=== PATIENT | female | born 1990 | race Caucasian/White ===

== ENCOUNTER 2016-04-18 17:59 | Emergency (ER) | payer BC, OTHER ==
[~2016-04-18] VITALS: Ht 165.1 cm; Wt 83.2 kg
[~2016-04-18 17:59] MED LIST: BCPILLS PO
[2016-04-18 18:06] VITALS: TEMP 37; Ht 165.1 cm; Wt 83.2 kg
[2016-04-18] MEDS ORDERED: IBUP-103 PO (18:17)
--- NOTE | 2016-04-18 18:25 | EMERGENCY ROOM VISIT NOTE ---
ED Visit Note First contact with patient: 18:12 CHIEF COMPLAINT: Hand injury HISTORY OF PRESENT ILLNESS: This 25-year-old female patient presented to the emergency department ambulatory after they injured the right hand when she tripped going up the steps at work today around 3 PM. There was no audible snap or crack at that time. The patient rates the pain as sharp and 6/10. The patient denies any numbness or tingling. The patient does not have injuries to the wrist. Normal range of motion of the wrist. The patient has not had an injury to this hand before. REVIEW OF SYSTEMS: A 6 system review of systems was completed with positives and pertinent negatives in the HPI. ALLERGIES: No known drug allergies MEDICATIONS: control pills PMH: Patient denies SOCIAL HISTORY: The patient does not smoke. She is employed PHYSICAL EXAM: Vital Signs: Reviewed Nurse's notes, vital signs stable. GENERAL : This is a 25-year-old female, in no acute distress, but appears to be in pain , well-developed, well-nourished. MUSCULOSKELETAL: There is no deformity of the right hand. There is tenderness over the fifth metacarpal at the MCP and the fifth finger. There is no thenar or hypothenar eminence atrophy.there is decreased movement of the finger due to pain and swelling. [facility] [employer] strength 4/5. There is no laceration. Capillary refill less than 2 seconds. No tenderness of the fingers or wrist. Mild tenderness to palpation over the entire forearm. Full range of motion of the wrist. No snuff box tenderness. Radial pulse 2+. NEURO: Alert and oriented to person, place, and time. Normal sensation to light and sharp touch. EMERGENCY DEPARTMENT COURSE: I examined the patient. An x-ray of the right hand and forearm were reviewed by myself and radiology and shows no fracture dislocation. A metal splint was applied. She should follow-up with a Worker's Comp. doctor or orthopedics if the finger is not improving in the next 5-7 days. The patient was discharged home in good condition. RIGHT FOREARM 2 VIEWS ROUTINE CLINICAL HISTORY: Right forearm pain status post trauma COMPARISON: None. DISCUSSION: No acute fractures or dislocations are visualized. There is mild ulnar minus variance. There is no evidence for soft tissue swelling. IMPRESSION: No acute fractures or dislocations identified. [~ rep ct add3]] RIGHT HAND MIN 3 VIEWS ROUTINE CLINICAL HISTORY: Right hand pain status post trauma COMPARISON: None. DISCUSSION: There is ulnar minus variance. No acute fractures or dislocations are visualized. IMPRESSION: No acute fractures or dislocations are visualized. Current/Historical Medications Scheduled Control Pills ( Control Pills), 1 TAB PO DAILY Ibuprofen Tab (Advil), 400 MG PO PRN UD Allergies Coded Allergies: Ragweed (Verified Allergy, Intermediate, CONGESTION, 01/13/15) Vital Signs Date Time Temp Pulse Resp B/P Pulse Ox O2 Delivery O2 Flow Rate FiO2 04/18/16 20:01 82 18 116/83 96 04/18/16 18:06 37.0 74 18 134/89 98 Room Air Departure Information Impression Primary Impression: Finger contusion Additional Impressions: Fall Work related injury Dispostion Home / Self-Care Condition GOOD Referrals Fanta Desai MD (PCP) Peter Maloney M.D. Patient Instructions ED Contusion Finger, [facility] Additional Instructions Wear the splint for the next 5-7 days Ibuprofen 600 mg every 6-8 hours or moderate pain Follow up with a Worker's Comp. doctor or orthopedics if the symptoms are not improving in 1 week Return with worsening symptoms Problem Qualifiers Primary Impression: Finger contusion Encounter type: initial encounter Finger: little finger Damage to nail status: without damage Laterality: right Qualified Codes: S60.051A - Contusion of right little finger without damage to nail, initial encounter Additional Impressions: Fall Encounter type: initial encounter Qualified Codes: W19.XXXA - Unspecified fall, initial encounter
--- NOTE | 2016-04-18 19:01 | DIAGNOSTIC IMAGING REPORT ---
RIGHT HAND MIN 3 VIEWS ROUTINE CLINICAL HISTORY: Right hand pain status post trauma COMPARISON: None. DISCUSSION: There is ulnar minus variance. No acute fractures or dislocations are visualized. IMPRESSION: No acute fractures or dislocations are visualized. Electronically signed by: Jack Beltrán M.D. 04/18/2016 7:00 PM Dictated Date/Time: 04/18/2016 6:59 PM
--- NOTE | 2016-04-18 19:02 | DIAGNOSTIC IMAGING REPORT ---
RIGHT FOREARM 2 VIEWS ROUTINE CLINICAL HISTORY: Right forearm pain status post trauma COMPARISON: None. DISCUSSION: No acute fractures or dislocations are visualized. There is mild ulnar minus variance. There is no evidence for soft tissue swelling. IMPRESSION: No acute fractures or dislocations identified. Electronically signed by: Jack Beltrán M.D. 04/18/2016 7:01 PM Dictated Date/Time: 04/18/2016 7:00 PM
[2016-04-18 20:01] VITALS: BP 116/83; PULSE 82; O2SAT 96
== END 2016-04-18 20:02 | disposition home or self-care (01) ==
LOC: C.EDB 18:00 → C.EDD 20:02
DX: S60.221A Contusion of right hand, initial encounter (principal); W10.8XXA Fall (on) (from) other stairs and steps, initial encounter; Y92.89 Other specified places as the place of occurrence of the external cause; Y99.0 Civilian activity done for income or pay; Z91.09 Other allergy status, other than to drugs and biological substances

== ENCOUNTER → 2016-06-20 | Outpatient (CLI) | payer BC ==
[~2016-06-20] MED LIST changes: +IBUP-103 PO
== END | disposition home or self-care (01) ==
LOC: C.PAPS 14:18
PROVIDERS: ATTEND Obstetrics & Gynecology
DX: Z01.419 Encounter for gynecological examination (general) (routine) without abnormal findings (principal)